=== PATIENT | female | born 1995 | race Caucasian/White ===

== ENCOUNTER 2025-07-28 16:17 | Inpatient (IN) ==
--- NOTE | 2025-07-28 16:30 | History & Physical Report ---
Date of Service July 28, 2025 Assessment & Plan (1) Intrauterine growth restriction (IUGR) affecting care of mother, third trimester, single gestation: (2) Oligohydramnios antepartum: Plan Patient is a 29yo who presents at 35w4d following visit in the office with concern for severe IUGR and oligohydramnios. With these findings, delivery is now recommended. BSUS confirms breech presentation. Recommend proceeding with primary section and patient is agreeable. Questions answered. Preop orders in. Anesthesia conslted. Peds team aware and indicated they would be comfortable with this delivery gestational age. Rh pos, RI, GBS unknown. Admission and Anticipated Discharge Date Admission Date: July 28, 2025 History of Present Illness Chief Complaint: IUGR (AC <2%, EFW 5%), Oligohydramnios Primary Care Provider: Darwin Sanchez, III, RENTAL REPRESENTATIVE Patient is a 29yo who presents at 35w4d following visit in the office with concern for severe IUGR and oligohydramnios complicated by 2 vessel cord, IUGR, and GDM. Patient reports no issues, physically feels well today but a little overwhelmed with being sent to the hospital for delivery. Of note, fetus was breech on today's office ultrasound. EFW was 5%, AC <2%, and DVP at 1.8cm. Allergies Allergy/AdvReac Type Severity Reaction Status Date / Time cephalexin Allergy Intermediate Rash Verified 07/28/25 15:04 Home Medications Medication Instructions Recorded Confirmed Type famotidine 10 mg tablet 10 mg PO DAILY PRN reflux 07/21/24 07/28/25 History B-complex with vitamin C 1 tab PO DAILY 08/31/24 07/28/25 History riboflavin (vitamin B2) 400 mg 400 mg PO DAILY #30 tabs 11/12/24 07/28/25 Rx tablet sumatriptan 10 mg/actuation nasal 10 mg intranasal Q2H PRN migraine 01/01/25 07/28/25 Rx spray (Tosymra) headache 30 days #6 ea 21-iron fu-folic acid PO 01/07/25 07/28/25 History [ Complete] digital therapeutic,ETHAN device #1 ea 02/25/25 07/28/25 Rx acetone (urine) test (Ketone Urine #50 ea 06/22/25 07/28/25 Rx Test strips) blood sugar diagnostic (True #150 ea 06/22/25 07/28/25 Rx Metrix Glucose Test Strip) blood-glucose meter (True Metrix #1 ea 06/22/25 07/28/25 Rx Glucose Meter) lancets 33 gauge (TRUEplus Lancets) #150 ea 06/22/25 07/28/25 Rx blood sugar diagnostic (OneTouch #150 ea 07/17/25 07/28/25 Rx Verio test strips) magnesium glycinate 200 mg PO DAILY 07/28/25 07/28/25 History Patient History Medical History (Updated 07/28/25 @ 16:34 by Zoe Yadav MD) GERD (gastroesophageal reflux disease) Hiatal hernia Varicella vaccination Surgical History S/P endoscopy S/P nasal septoplasty S/P rhinoplasty S/P wisdom tooth extraction Family History Aunt Breast cancer Grandmother (Paternal) Colorectal cancer Grandmother (Maternal) Breast cancer Heart disease Mother Hypertension Father Hypertension Denies family history of Ovarian cancer Prostate cancer Myocardial infarction Social History Smoking Status: Never smoker Second Hand Exposure: No; Do You Dip or Chew Tobacco: No; Hx Alcohol Use: No Hx Substance Use: No Preferred Language: Irish Communication Ability: Effective Visual Impairment: No Limitations Hearing Ability: Normal Beliefs That Will Affect Care: None marital status: marital status details: Steve Holden (31) [phone] Current Living Situation: Spouse Current Living Situation Comment: lives with spouse, cat-spouse changing litter current occupational status: employed current occupation: [employer] Feels Safe at Home: Yes Childhood Exposure to Second-Hand Smoke: No Diet: regular caffeine: No Dental Care, Regularly: Yes Physical Activity Frequency: 3-4 Times per Week Seatbelt Use: always Sunscreen Use: Yes Review of Systems All systems reviewed & are unremarkable except as noted in HPI & below Physical Exam Constitutional: WD/WN, vitals as above healthy appearing Respiratory: normal respiratory effort Psychiatric: Orientation: alert and oriented x 3 Genitourinary: OB Exam Monitor Tracing: + external FHT monitor used, + external uterine monitor used (rare contraction) and + category I (150/mod tyrell/+accels/no decels) BSUS-breech, head maternal left Coding Level of Care Code None Diagnoses Intrauterine growth restriction (IUGR) affecting care of mother, third trimester, single gestation O36.5930 Oligohydramnios antepartum O41.00X0
[2025-07-28] MEDS: LACTATED RINGER'S 1,000 ML IV SCH (16:45)
[2025-07-28] MEDS ORDERED: LACTATED RINGER'S 1,000 ML IV SCH ×2 (17:00→20:52)
[2025-07-28 17:32] LABS: Hematocrit (blood only) 36.6 % (37.0-47.0); Hemoglobin 13.2 g/dL (12.0-16.0); Mean Corpuscular Hemoglobin 32.4 pg (25.0-34.0); Mean Corpuscular Volume 89.9 fL (80.0-100.0); Platelet Count 204 K/uL (130-400); RDW Standard Deviation 43.8 fL (36.4-46.3); Red Blood Count 4.07 M/uL (4.20-5.40); White Blood Count 10.41 K/ul (4.8-10.8)
[2025-07-28] MEDS: DEXTROSE 5% IV STA (18:02)
[2025-07-28] MEDS: GENTAMICIN SULFATE IV STA (18:02)
[2025-07-28] MEDS: ACETAMINOPHEN 500 MG TAB PO SCH (18:27)
--- NOTE | 2025-07-28 19:09 | Anesthesiology Consultation ---
Date of Service July 28, 2025 Assessment & Plan Chart Review Chart Review: Acceptable Risk for Surgery and Patient NOT seen in Pre Admission Testing Consults Requested none ASA ASA2 Proposed Anesthesia Anesthesia Type: Spinal (+intrathecal narcotics) Risk / Benefits Reviewed With: PT / POA / Parent / Guardian, Accepts Plan and Informed Consent Obtained History Surgery Operation Date: 07/28/25 19:30 Proposed Procedures p Section in LD - Zoe Yadav MD Height/Weight Height: 5 ft 1 in Weight: 66.224 kg Allergies Allergy/AdvReac Type Severity Reaction Status Date / Time cephalexin Allergy Intermediate Rash Verified 07/28/25 15:04 Medications Home Medications Medication Instructions Recorded Confirmed Last Taken famotidine 10 mg tablet 10 mg PO DAILY PRN reflux 07/21/24 07/28/25 Unknown riboflavin (vitamin B2) 400 mg 400 mg PO DAILY #30 tabs 11/12/24 07/28/25 07/27/25 tablet sumatriptan 10 mg/actuation nasal 10 mg intranasal Q2H PRN migraine 01/01/25 07/28/25 Unknown spray (Tosymra) headache 30 days #6 ea 21-iron fu-folic acid PO 01/07/25 07/28/25 07/27/25 [ Complete] digital therapeutic,ETHAN device #1 ea 02/25/25 07/28/25 Unknown acetone (urine) test (Ketone Urine #50 ea 06/22/25 07/28/25 Unknown Test strips) blood sugar diagnostic (True #150 ea 06/22/25 07/28/25 Unknown Metrix Glucose Test Strip) blood-glucose meter (True Metrix #1 ea 06/22/25 07/28/25 Unknown Glucose Meter) lancets 33 gauge (TRUEplus Lancets) #150 ea 06/22/25 07/28/25 Unknown blood sugar diagnostic (OneTouch #150 ea 07/17/25 07/28/25 Unknown Verio test strips) magnesium glycinate 200 mg PO DAILY 07/28/25 07/28/25 07/27/25 Active Medications Generic Name Dose Route Start Last Admin Trade Name Freq PRN Reason Stop Dose Admin Acetaminophen 1,000 mg 07/28/25 17:30 07/28/25 18:27 Acetaminophen 500 Mg Tab PO 07/29/25 17:29 1,000 mg PREOP PAIGE Administration Lactated Ringer's 1,000 mls @ 125 mls/hr 07/28/25 18:00 07/28/25 17:54 Lr IV 07/31/25 17:59 125 mls/hr .Q8H PAIGE Administration NPO Date Last Intake of Fluids: 07/28/25 Time Last Intake of Fluids: 14:00 Date Last Intake of Solids: 07/28/25 Time Last Intake of Solids: 14:00 Past Medical History Medical History (Updated 07/28/25 @ 16:34 by Zoe Yadav MD) GERD (gastroesophageal reflux disease) Hiatal hernia Varicella vaccination Exercise / Class Metabolic Activity II 4-5 Yardwork/Stairs/Walk up hill Past Family History Family History Aunt Breast cancer Grandmother (Paternal) Colorectal cancer Grandmother (Maternal) Breast cancer Heart disease Mother Hypertension Father Hypertension Denies family history of Ovarian cancer Prostate cancer Myocardial infarction Past Surgical History Surgical History S/P endoscopy S/P nasal septoplasty S/P rhinoplasty S/P wisdom tooth extraction Past Anesthesia History No Hx of Anesthesia Complications and No Family Hx of Anesthesia Complications History of PONV No Hx of PONV and No Hx of Motion Sickness Social History Smoking Status: Never smoker Do You Dip or Chew Tobacco: No Hx Alcohol Use: No Hx Substance Use: No Physical Exam Vital Signs Last Vital Signs Temp 37.0 C 07/28/25 19:02 Pulse 90 07/28/25 19:02 Resp 18 07/28/25 19:02 BP 120/71 07/28/25 19:02 ENMT Mouth: no dentition abnormality Thyromental Distance: > or= 3.5 Finger Breadths Mallampati Class: II Neck normal visual inspection Respiratory normal respiratory effort Auscultation: lungs clear to auscultation bilaterally Cardiovascular Rate/Rhythm: regular rate and regular rhythm Psychiatric Orientation: alert Testing Laboratory Results 07/28/25 17:10 Blood Type O Positive 07/28/25 17:10 Antibody Screen NEGATIVE 07/28/25 17:10 07/28/25 18:10 POC Glucose 79
[2025-07-28] MEDS ORDERED: PHENYLEPHRINE HCL 25 MG/250 ML NSS IV ONE (19:22)
[2025-07-28] MEDS ORDERED: MoRPHine SULFATE PF 1 MG/ML 10 ML AMP/VIAL ONE (19:22)
[2025-07-28] MEDS ORDERED: ONDANSETRON INJ 2 MG/ML 2 ML VIAL ONE (19:22)
[2025-07-28] MEDS ORDERED: OXYTOCIN 10 UNITS/ML VIAL ONE (19:22)
[2025-07-28] MEDS: CLINDAMYCIN/D5W 900 MG/50 ML BAG IV STA (19:24)
[2025-07-28] MEDS: CITRIC ACID/SODIUM CITRATE 15 ML UDC PO SCH (19:26)
[2025-07-28] MEDS ORDERED: LACTATED RINGER'S 500 ML IV PRN (20:10)
[2025-07-28] MEDS ORDERED: NALOXONE HCL 1 MG in SODIUM CHLORIDE 0.9% 1,000 ML IV PRN (20:10)
[2025-07-28] MEDS ORDERED: MoRPHine SULFATE PF 1 MG/ML 10 ML AMP/VIAL INT SPINAL ONE (20:10)
[2025-07-28] MEDS ORDERED: NALOXONE HCL 0.4 MG/1 ML VIAL/CARP IV PRN (20:10)
[2025-07-28] MEDS ORDERED: NO NARCOTICS OR SEDATIVES SCH (20:15)
[2025-07-28] MEDS ORDERED: SODIUM CHLORIDE 0.9% 1,000 ML IV SCH (20:15)
[2025-07-28] MEDS ORDERED: DC INTRASPINAL MORPHINE SCH (20:15)
--- NOTE | 2025-07-28 20:36 | Operative Report ---
Post Operative Report Pre & Post Diagnosis Operation Date: 07/28/25 19:30 Pre-Op Diagnosis: Primary section for severe IUGR, oligohydraminos, 35 weeks (), breech presentation Post-Op Diagnosis: Primary section for severe IUGR, oligohydraminos, 35 weeks (), breech presentation I identified the patient and participated in the time-out.: Yes Procedure Operation Date: 07/28/25 19:30 Actual Procedures Primary Low Transverse Section in - viable male born [birth year] @ 1958(Bilateral) - Zoe Yadav MD Surgeon Zoe Yadav MD Tugboat Pilot RN Quantitative Blood Loss (QBL) 541 Findings Consistent with Post-Op Diagnosis Normal uterus, bilateral fallopian tubes and ovaries. Viable male , APGARS 8/9, clear fluid, breech presentation. Fluids per anesthesia Specimens placenta, cord blood Drains pacheco catheter Anesthesia Type Spinal Complications none Disposition Accompanied Patient To Recovery: Yes Disposition: L&D Indications Patient is a 29yo who presented at 35w4d for delivery due to findings of severe IUGR (AC <2%) and newly diagnosed oligohydramnios. She was consented for and recommended to undergo primary section due to breech presentation of the fetus. Patient was agreeable to this plan. Description of Procedure Description of Procedure The patient was taken to the operating room and identified. After adequate anesthesia was obtained, she was placed in the supine position with a leftward tilt on the operating table and prepped and draped in the usual sterile fashion. A pacheco catheter had already been placed. The knife was used to create a Pfannenstiel skin incision that was carried down to the underlying layer of fascia using bovie cautery. The fascia was nicked in the midline and this opening was extended laterally using Cormier scissors. Chacho clamps were placed on the superior and inferior aspect of the fascial incision tenting it upward and the underlying rectus muscles were dissected off the overlying fascia both sh arply and bluntly using Cormier scissors. The rectus muscles were bluntly in the midline. The peritoneal cavity was bluntly entered into. This opening was stretched. The vesicouterine peritoneum was elevated and opened up into and the bladder flap was created digitally. An Parth retractor was placed. The knife was used to create a hysterotomy and this opening was stretched. The operators h and was placed through the hysterotomy. The fetus was delivered using the usual breech maneuvers atraumatically. The cord was clamped and cut and the 's mouth and nares were bulb suctioned. The was handed off to the awaiting pediatricians. Cord blood was obtained. The uterus was exteriorized and cleared of all clots and debris. Dilute IV Pitocin was begun. The hysterotomy was closed in a running interlocking fashion using 0 vicryl. The hysterotomy was noted to be hemostatic. An imbricating layer was also added. The uterus was returned to the abdomen. The gutters were cleared of all clots and debris. The hysterotomy was reinspected and noted to be hemostatic. The fascia was then closed in running fashion using 0 Vicryl. The subcutaneous fat was copiously irrigated and reapproximated using plain gut suture. The skin was closed in a subcuticular fashion using 4-0 monocryl. At this point the procedure was terminated. The patient was transferred to the recovery room in stable condition. All sponge, lap and needle counts are correct x2. I attest to the content of the Intraoperative Record and any orders documented therein. Any exceptions are noted below. OB Procedure Charges 74136
[2025-07-28] MEDS ORDERED: HYDROCORTISONE ACETATE 25 MG SUPP PR PRN (20:52)
[2025-07-28] MEDS ORDERED: CALCIUM CARBONATE 500 MG CHEWABLE TAB PO PRN (20:52)
[2025-07-28] MEDS ORDERED: MAGNESIUM HYDROXIDE SUSP 30 ML UDC PO PRN (20:52)
[2025-07-28] MEDS ORDERED: SENNA 8.6 MG TAB PO PRN (20:52)
[2025-07-28] MEDS ORDERED: BENZOCAINE 20% SPRY 85 APPLN/85 GM CAN EXT PRN (20:52)
--- NOTE | 2025-07-28 21:01 | Anesthesiology Progress Note ---
Date of Service July 28, 2025 Anesthesia Post Procedure Vital Signs Vital Signs: Temp Pulse Resp BP Pulse Ox O2 Del Method 07/28/25 20:58 75 111/70 07/28/25 20:55 87 96 07/28/25 20:50 92 H 97 07/28/25 20:46 88 151/64 H 07/28/25 20:45 92 H 97 07/28/25 20:40 89 96 07/28/25 20:35 98 07/28/25 20:35 89 07/28/25 20:35 87 158/60 H 07/28/25 19:07 37.0 C 18 07/28/25 19:07 Room Air 07/28/25 19:02 37.0 C 90 18 120/71 07/28/25 19:00 18 07/28/25 19:00 18 07/28/25 18:30 18 07/28/25 18:30 18 07/28/25 18:00 18 07/28/25 18:00 18 07/28/25 17:30 18 07/28/25 17:30 18 07/28/25 16:45 18 07/28/25 16:45 18 07/28/25 16:37 37 C 18 07/28/25 16:33 88 127/77 Transfer of Care Handoff Completed per policy Notes Mental Status: alert / awake / arousable Nausea / Vomiting: adequately controlled Pain: adequately controlled Airway Patency, RR, SpO2: stable & adequate BP & HR: stable & adequate Hydration State: stable & adequate Neuraxial Anesthesia: was administered and sensory block is resolving Anesthetic Complications: no major complications apparent and Pt Satisfied with anesthetic care
[2025-07-28] MEDS: DIPHTHER/TETAN/PERTUS Vaccine (Tdap, Adol/Adult) 0.5mL IM ONE (21:09)
[2025-07-28] MEDS: KETOROLAC 30 MG/ML VIAL IV SCH (21:09)
[2025-07-28] MEDS: OXYTOCIN 20 UNITS/LR 1,002 ML IV SCH (22:57)
[2025-07-28] MEDS: DOCUSATE SODIUM 100 MG CAP PO SCH (23:20)
[2025-07-29] MEDS: SIMETHICONE 80 MG CHEW PO SCH (02:43)
[2025-07-29] MEDS: ACETAMINOPHEN 325 MG TAB PO SCH (02:44)
--- NOTE | 2025-07-29 06:01 | Obstetrical Progress Note ---
Date of Service July 29, 2025 Assessment & Plan (1) care following delivery: Plan 29 yo post- day 1 s/p Feels well today. Vital signs stable Continue post- care Encourage ambulation and Pain controlled with ibuprofen Hgb stable Admission and Anticipated Discharge Date Admission Date: July 28, 2025 Supervising Physician Co-Signing Physician Notes Resident Physician Supervision Note: I interviewed and examined the patient. Discussed with Dr. Armenta and agree with findings and plan as documented in the note. Any exceptions or clarifications are listed here: POD#1 from [facility] for breech presentation. Doing well, pain controlled. Has not voided yet but planning to try again soon. Breast and bottle feeding. Uterus firm, -1 from umbilicus; incision bandage clean and dry. Continue routine postop care; discussed potential need for straight cath vs replacing pacheco if unable to void throughout the morning. Documented By: Zoe Yadav MD Subjective 29 yo post- day 1 s/p Ambulation: ambulating normally Voiding: has not voided yet Passing Gas:: Yes Passing Stool:: No Diet Tolerance:: regular diet Lochia:: Small Feeding Type:: breast and bottle feeding Current Pain Level: 0/10 Resting comfortably this AM in NAD. Denies AMIN, CP, SOB, N/V/D, LE pain/swelling. Review of Systems Review of Systems: All systems reviewed & are unremarkable except as noted in HPI & below Physical Exam Physical Exam: General: patient resting comfortably, NAD, non-toxic in appearance, AA&O x 4, answers questions appropriately. Skin: warm, dry, intact HEENT: NC/AT, anicteric sclera, conjunctiva without injection, moist mucus membranes. Heart: +S1/S2, regular, no m/r/g Lungs: equal air entry bilaterally, no rales/rhonchi/wheezes Abd: +BS, soft, NT/ND, uterine fundus firm at umbilicus, caesarean incision dressing C/D/I. Ext: warm, no clubbing/cyanosis or edema, Lakhwinder's neg. Neuro: nonfocal, patient AA&O x 4, speech intact, no facial droop, moving all extremities on command. Results & Data Vital Signs (Past 12 Hours) Vital Signs Temp Pulse Pulse Resp BP BP Pulse Ox 11/19/25 05:15 16 96 07/29/25 04:09 16 95 07/29/25 03:08 36.7 C 85 18 102/59 L 96 07/29/25 03:00 18 95 07/29/25 02:00 18 95 07/29/25 01:00 18 95 07/29/25 00:00 18 96 07/28/25 23:25 18 96 07/28/25 23:25 36.8 C 87 18 116/73 96 07/28/25 22:46 83 107/58 L 07/28/25 22:45 18 07/28/25 22:45 87 96 07/28/25 22:40 97 H 96 07/28/25 22:36 83 103/55 L 07/28/25 22:35 87 96 07/28/25 22:30 82 96 07/28/25 22:26 85 113/57 L 07/28/25 22:25 84 96 07/28/25 22:20 92 H 96 07/28/25 22:16 85 125/63 07/28/25 22:15 18 07/28/25 22:15 91 H 96 07/28/25 22:10 89 96 07/28/25 22:07 88 118/58 L 07/28/25 22:05 88 97 07/28/25 22:04 94 H 92 07/28/25 22:00 81 96 07/28/25 21:56 82 110/64 07/28/25 21:55 83 97 07/28/25 21:50 87 96 07/28/25 21:46 91 H 114/73 07/28/25 21:45 18 07/28/25 21:45 18 07/28/25 21:45 92 H 96 07/28/25 21:40 83 97 07/28/25 21:36 77 109/66 07/28/25 21:35 18 07/28/25 21:35 86 97 07/28/25 21:30 96 H 97 07/28/25 21:26 88 116/65 07/28/25 21:25 18 07/28/25 21:25 92 H 97 07/28/25 21:20 89 97 07/28/25 21:16 85 118/59 L 07/28/25 21:15 18 07/28/25 21:15 90 96 07/28/25 21:10 93 H 97 07/28/25 21:06 83 126/61 07/28/25 21:05 18 07/28/25 21:05 102 H 97 07/28/25 21:00 92 H 97 07/28/25 20:58 75 111/70 07/28/25 20:55 18 07/28/25 20:55 87 96 07/28/25 20:50 92 H 97 07/28/25 20:46 88 151/64 H 07/28/25 20:45 36.7 C 18 07/28/25 20:45 92 H 97 07/28/25 20:40 89 96 07/28/25 20:35 98 07/28/25 20:35 89 07/28/25 20:35 87 158/60 H 07/28/25 19:07 37.0 C 18 07/28/25 19:07 07/28/25 19:02 37.0 C 90 18 120/71 07/28/25 19:00 18 07/28/25 19:00 18 07/28/25 18:30 18 07/28/25 18:30 18 07/28/25 18:00 18 07/28/25 18:00 18 O2 Del Method 07/29/25 05:15 07/29/25 04:09 07/29/25 03:08 Room Air 07/29/25 03:00 07/29/25 02:00 07/29/25 01:00 07/29/25 00:00 07/28/25 23:25 07/28/25 23:25 Room Air 07/28/25 22:46 07/28/25 22:45 07/28/25 22:45 07/28/25 22:40 07/28/25 22:36 07/28/25 22:35 07/28/25 22:30 07/28/25 22:26 07/28/25 22:25 07/28/25 22:20 07/28/25 22:16 07/28/25 22:15 07/28/25 22:15 07/28/25 22:10 07/28/25 22:07 07/28/25 22:05 07/28/25 22:04 07/28/25 22:00 07/28/25 21:56 07/28/25 21:55 07/28/25 21:50 07/28/25 21:46 07/28/25 21:45 07/28/25 21:45 07/28/25 21:45 07/28/25 21:40 07/28/25 21:36 07/28/25 21:35 07/28/25 21:35 07/28/25 21:30 07/28/25 21:26 07/28/25 21:25 07/28/25 21:25 07/28/25 21:20 07/28/25 21:16 07/28/25 21:15 07/28/25 21:15 07/28/25 21:10 07/28/25 21:06 07/28/25 21:05 07/28/25 21:05 07/28/25 21:00 07/28/25 20:58 07/28/25 20:55 07/28/25 20:55 07/28/25 20:50 07/28/25 20:46 07/28/25 20:45 07/28/25 20:45 07/28/25 20:40 07/28/25 20:35 07/28/25 20:35 07/28/25 20:35 07/28/25 19:07 07/28/25 19:07 Room Air 07/28/25 19:02 07/28/25 19:00 07/28/25 19:00 07/28/25 18:30 07/28/25 18:30 07/28/25 18:00 07/28/25 18:00 Laboratory Results OB Labs: Blood Type O Positive 01/12/25 Antibody Screen NEGATIVE 01/12/25 Hgb 12.9 g/dl (12.0-16.0) 06/09/25 Hct 36.6 % (37.0-47.0) L 06/09/25 MCV 89.7 fL (80.0-100.0) 01/12/25 Plt Count 260 K/uL (130-400) 01/12/25 VZV IgG Antibody 1789.00 index 04/21/24 Rubella IgG Antibody Immune (Immune) 01/12/25 Treponema pallidum Ab Negative (Negative) 06/09/25 Hep Bs Antigen Negative (Negative) 01/12/25 Hepatitis C Antibody Negative (Negative) 01/12/25 HIV 1&2 Ab/P24 Ag 4thGn Negative (Negative) 01/12/25 Glucose 1 Hr 50 gm 138 mg/dl (70-130) H 06/09/25 Maternal Serum AFP 44.7 ng/mL 03/24/25 OB Optional Labs: Chlamydia trachomatis RNA Not Detected (NotDetected) 01/12/25 Neisseria gonorrhoeae RNA Not Detected (NotDetected) 01/12/25 Alpha Fetoprotein Triple Screen SEE NOTE 03/24/25 Resident Activity Tracking Resident Involvement: Resident Care Provided Care Provided: OB Delivery
[2025-07-29 06:20] LABS: Hematocrit (blood only) 31.3 % (37.0-47.0); Hemoglobin 10.9 g/dL (12.0-16.0); Immature Granulocytes # (auto) 0.08 K/uL (0.01-0.20); Immature Granulocytes % (auto) 0.6 %; Mean Corpuscular Hemoglobin 31.8 pg (25.0-34.0); Mean Corpuscular Volume 91.3 fL (80.0-100.0); Platelet Count 170 K/uL (130-400); RDW Standard Deviation 44.1 fL (36.4-46.3); Red Blood Count 3.43 M/uL (4.20-5.40); White Blood Count 12.96 K/ul (4.8-10.8)
[2025-07-29] MEDS: NALOXONE HCL 0.08 MG in SYRINGE 1.8 ML IV PRN (09:03)
[2025-07-29] MEDS: FERROUS SULFATE 325 MG TAB PO SCH (09:12)
[2025-07-29] MEDS: PRENATAL VITAMIN 1 TAB PO SCH (09:12)
[2025-07-29] MEDS ORDERED: HYDROmorphone INJ 0.5 MG/0.5 ML SYR IV PRN ×2 (14:10→14:11)
[2025-07-29] MEDS ORDERED: diphenhydrAMINE 50 MG/ML VIAL IV PRN ×2 (14:10→14:11)
[2025-07-29] MEDS ORDERED: diphenhydrAMINE Capsule 25 MG CAP PO PRN (14:10)
[2025-07-29] MEDS ORDERED: ONDANSETRON INJ 2 MG/ML 2 ML VIAL IV PRN ×2 (14:10→14:11)
[2025-07-29] MEDS ORDERED: PROMETHAZINE 12.5 MG/50.5 ML BAG IV PRN (14:10)
[2025-07-29] MEDS ORDERED: NALBUPHINE HCL INJ 10 MG/ML AMP IV PRN (14:11)
[2025-07-29] MEDS ORDERED: PROMETHAZINE 6.25 MG/50.25 ML BAG IV PRN (14:11)
[2025-07-29] MEDS ORDERED: MoRPHine SULFATE 2 MG/ML CARP IV PRN (14:11)
[2025-07-29] MEDS ORDERED: MEPERIDINE HCL 25 MG/ML CARP/VIAL IV PRN (14:11)
[2025-07-29] MEDS ORDERED: KETOROLAC 30 MG/ML VIAL IV PRN (20:32)
[2025-07-29] MEDS: IBUPROFEN 600 MG TAB PO SCH (21:11)
--- NOTE | 2025-07-30 05:55 | Obstetrical Progress Note ---
Date of Service July 30, 2025 Assessment & Plan (1) care following delivery: Plan 29 yo post- day 2 s/p Feels well today. Vital signs stable Continue post- care Encourage ambulation and Pain controlled with ibuprofen Hgb stable Patient would like to stay an additional night, stable for discharge tomorrow Admission and Anticipated Discharge Date Admission Date: July 28, 2025 Supervising Physician Co-Signing Physician Notes Resident Physician Supervision Note: I interviewed and examined the patient. Discussed with Dr. Armenta and agree with findings and plan as documented in the note. Any exceptions or clarifications are listed here: [ ] Documented By: Sabina Montemayor MD, FACOG, MSCP Subjective 29 yo post- day 2 s/p Ambulation: ambulating normally Voiding: no voiding problems Passing Gas:: Yes Passing Stool:: No Diet Tolerance:: regular diet Lochia:: Small Feeding Type:: breast and bottle feeding Current Pain Level: 2/10 Resting comfortably this AM in NAD. Denies AMIN, CP, SOB, N/V/D, LE pain/swelling. Review of Systems Review of Systems: All systems reviewed & are unremarkable except as noted in HPI & below Physical Exam Physical Exam: General: patient resting comfortably, NAD, non-toxic in appearance, AA&O x 4, answers questions appropriately. Skin: warm, dry, intact HEENT: NC/AT, anicteric sclera, conjunctiva without injection, moist mucus membranes. Heart: +S1/S2, regular, no m/r/g Lungs: equal air entry bilaterally, no rales/rhonchi/wheezes Abd: +BS, soft, NT/ND, uterine fundus firm at umbilicus, caesarean incision dressing C/D/I. Ext: warm, no clubbing/cyanosis or edema, Lakhwinder's neg. Neuro: nonfocal, patient AA&O x 4, speech intact, no facial droop, moving all extremities on command. Results & Data Vital Signs (Past 12 Hours) Vital Signs Temp Pulse Resp BP Pulse Ox O2 Del Method 07/29/25 23:20 36.4 C L 88 20 101/62 Room Air 07/29/25 19:35 36.5 C 90 18 100/60 96 Room Air Laboratory Results OB Labs: Blood Type O Positive 01/12/25 Antibody Screen NEGATIVE 01/12/25 Hgb 12.9 g/dl (12.0-16.0) 06/09/25 Hct 36.6 % (37.0-47.0) L 06/09/25 MCV 89.7 fL (80.0-100.0) 01/12/25 Plt Count 260 K/uL (130-400) 01/12/25 VZV IgG Antibody 1789.00 index 04/21/24 Rubella IgG Antibody Immune (Immune) 01/12/25 Treponema pallidum Ab Negative (Negative) 06/09/25 Hep Bs Antigen Negative (Negative) 01/12/25 Hepatitis C Antibody Negative (Negative) 01/12/25 HIV 1&2 Ab/P24 Ag 4thGn Negative (Negative) 01/12/25 Glucose 1 Hr 50 gm 138 mg/dl (70-130) H 06/09/25 Maternal Serum AFP 44.7 ng/mL 03/24/25 OB Optional Labs: Chlamydia trachomatis RNA Not Detected (NotDetected) 01/12/25 Neisseria gonorrhoeae RNA Not Detected (NotDetected) 01/12/25 Alpha Fetoprotein Triple Screen SEE NOTE 03/24/25 Resident Activity Tracking Resident Involvement: Resident Care Provided Care Provided: OB Delivery
[2025-07-30 06:45] LABS: Hematocrit (blood only) 32.3 % (37.0-47.0); Hemoglobin 11.2 g/dL (12.0-16.0)
[2025-07-30 19:16] VITALS: RESP 16
[2025-07-30] MEDS: IBUPROFEN 600 MG TAB PO PRN (20:42)
--- NOTE | 2025-07-31 06:27 | Obstetrical Progress Note ---
Date of Service July 31, 2025 Assessment & Plan (1) care following delivery: Plan 29 yo post- day 3 s/p Feels well today. Vital signs stable Continue post- care Encourage ambulation and Pain controlled with ibuprofen Hgb stable Discharge today, follow up with Dr. Yadav in 6 weeks for appt Admission and Anticipated Discharge Date Admission Date: July 28, 2025 Supervising Physician Co-Signing Physician Notes Resident Physician Supervision Note: I was present with Dr. Armenta during the history and exam. I discussed the case with the resident and agree with the findings and plan as documented in the note. Any exceptions or clarifications are listed here: POD#3 doing well, desires DC home. Reviewed PP instructions, followup 6w in office. Declines Rx for narcotic. Documented By: Leti Horton, Subjective 29 yo post- day 3 s/p Ambulation: ambulating normally Voiding: no voiding problems Passing Gas:: Yes Passing Stool:: Yes Diet Tolerance:: regular diet Lochia:: Small Feeding Type:: breast and bottle feeding Current Pain Level: 4/10 Resting comfortably this AM in NAD. Denies AMIN, CP, SOB, N/V/D, LE pain/swelling. Review of Systems Review of Systems: All systems reviewed & are unremarkable except as noted in HPI & below Physical Exam Physical Exam: General: patient resting comfortably, NAD, non-toxic in appearance, AA&O x 4, answers questions appropriately. Skin: warm, dry, intact HEENT: NC/AT, anicteric sclera, conjunctiva without injection, moist mucus membranes. Heart: +S1/S2, regular, no m/r/g Lungs: equal air entry bilaterally, no rales/rhonchi/wheezes Abd: +BS, soft, NT/ND, uterine fundus firm 2 FB below umbilicus, caesarean incision C/D/I. Ext: warm, no clubbing/cyanosis or edema, Lakhwinder's neg. Neuro: nonfocal, patient AA&O x 4, speech intact, no facial droop, moving all extremities on command. Results & Data Vital Signs (Past 12 Hours) Vital Signs Temp Pulse Resp BP Pulse Ox O2 Del Method 07/30/25 23:05 36.4 C L 87 16 123/80 98 Room Air 07/30/25 19:40 Room Air 07/30/25 19:14 36.4 C L 85 16 113/74 97 Room Air Laboratory Results OB Labs: Blood Type O Positive 01/12/25 Antibody Screen NEGATIVE 01/12/25 Hgb 12.9 g/dl (12.0-16.0) 06/09/25 Hct 36.6 % (37.0-47.0) L 06/09/25 MCV 89.7 fL (80.0-100.0) 01/12/25 Plt Count 260 K/uL (130-400) 01/12/25 VZV IgG Antibody 1789.00 index 04/21/24 Rubella IgG Antibody Immune (Immune) 01/12/25 Treponema pallidum Ab Negative (Negative) 06/09/25 Hep Bs Antigen Negative (Negative) 01/12/25 Hepatitis C Antibody Negative (Negative) 01/12/25 HIV 1&2 Ab/P24 Ag 4thGn Negative (Negative) 01/12/25 Glucose 1 Hr 50 gm 138 mg/dl (70-130) H 06/09/25 Maternal Serum AFP 44.7 ng/mL 03/24/25 OB Optional Labs: Chlamydia trachomatis RNA Not Detected (NotDetected) 01/12/25 Neisseria gonorrhoeae RNA Not Detected (NotDetected) 01/12/25 Alpha Fetoprotein Triple Screen SEE NOTE 03/24/25 Resident Activity Tracking Resident Involvement: Resident Care Provided Care Provided: OB Delivery
[2025-07-31] MEDS: ACETAMINOPHEN 325 MG TAB PO PRN (07:40)
[2025-07-31 09:12] VITALS: BP 112/72; PULSE 85; TEMP 97.7; O2SAT 97
== END 2025-07-31 15:40 | disposition home or self-care (01) | DRG 787 ==
LOC: 4S1 16:17 → 4E2 23:00